=== PATIENT | male | born 1995 | race Caucasian/White ===

== ENCOUNTER 2025-02-03 16:07 | Emergency (ER) | payer OTHER ==
[~2025-02-03] VITALS: Ht 193 cm; Wt 122.5 kg
[2025-02-03] MEDS ORDERED: IV NS 0.9% 250 ML IV ONE (17:00)
[2025-02-03] MEDS ORDERED: IOHEXOL-300 100 ML VIAL IV ONE (17:00)
[2025-02-03] MEDS ORDERED: CT SWABBABLE VALVE TRANS SET 1 EA INFUS.SET MC ONE (17:01)
[2025-02-03] MEDS ORDERED: ONDANSETRON HCL/PF 4 MG/2 ML VIAL ONE (17:07)
[2025-02-03] MEDS ORDERED: MORPHINE SULFATE INJ 2 MG/ML DISP.SYRIN ONE (17:07)
[2025-02-03 17:15] LABS: PLATELET COUNT (AUTO) 271 K/uL (150-450); RED BLOOD CELL COUNT(AUTO) 5.10 MIL/uL (4.5-6.0); RED CELL DISTRIBUTION WIDTH 12.7 % (11.5-15.0); WHITE BLOOD COUNT (AUTO) 9.8 K/uL (4.3-11.0)
[2025-02-03] MEDS: MORPHINE SULFATE INJ 2 MG/ML DISP.SYRIN IV ONE (17:18)
[2025-02-03] MEDS: ONDANSETRON HCL/PF 4 MG/2 ML VIAL IVP ONE (17:19)
[2025-02-03] MEDS: IV NS 0.9% 1,000 ML BAG IV ONE (17:19)
[2025-02-03 17:21] LABS: CALCIUM, SERUM 9.1 mg/dL (8.5-10.1); CREATININE 1.1 mg/dL (0.6-1.3); SODIUM SERUM 142.0 mmol/L (136-145); UREA NITROGEN, BLOOD 12.0 mg/dL (7-18)
[2025-02-03 17:33] LABS: ASPARTATE AMINOTRANSFERASE 20.0 U/L (15-37); TOTAL PROTEIN, SERUM 7.8 g/dL (6.4-8.2)
[2025-02-03] MEDS ORDERED: AMOX-430 PO (18:59)
[2025-02-03] MEDS ORDERED: HYDR7GEL RC (18:59)
[2025-02-03] MEDS ORDERED: KETO10TA2 PO (18:59)
[2025-02-03 19:19] VITALS: BP 136/73; TEMP 97.7; O2SAT 95
== END 2025-02-03 19:20 | disposition home or self-care (01) ==
LOC: ER 16:07
DX: R10.32 Left lower quadrant pain (principal); K62.89 Other specified diseases of anus and rectum; R11.2 Nausea with vomiting, unspecified; R19.7 Diarrhea, unspecified; F17.200 Nicotine dependence, unspecified, uncomplicated; Z87.19 Personal history of other diseases of the digestive system; Z60.2 Problems related to living alone
CPT/HCPCS: 99285; 74177; 96374; 96361; 96375; 85025; 80048; 83690; 80076; 36415; J2405; J7030; J7050; J2270; Q9967